=== PATIENT | male | born 1985 | race Two or more races ===

== ENCOUNTER → 2020-11-04 13:46 | Outpatient (BNVA) | payer MEDICAID, SELFPAY | PROVIDERS: PCP Internal Medicine; Visit Provider Surgery | DX: L02.01 Cutaneous abscess of face (principal) | CPT/HCPCS: 10061; 99202 ==

== ENCOUNTER 2022-05-10 10:34 | Outpatient (REF) | payer MEDICAID, SELFPAY ==
--- NOTE | ~2022-05-10 | XR_ITS ---
EXAMINATION: XR LUMBOSACRAL SPINE WITH OBLIQUES CLINICAL INFORMATION: Lumbar radiculopathy COMPARISON: Previous x-ray March 2018 TECHNIQUE: AP, both oblique, and lateral views of the lumbar spine. Lateral view of the lumbosacral junction. FINDINGS: Bone alignment is normal. No fracture or dislocation is seen. There is degenerative disc disease at L5-S1. There is lower lumbar spine facet arthritis. No pars defect is seen. XR/XR lumbar spine 4V min IMPRESSION: Degenerative changes.
== END 2022-05-10 10:35 | disposition home or self-care (01) ==
LOC: HO.XRAY 10:34
PROVIDERS: PCP Internal Medicine; Visit Provider Internal Medicine
DX: M54.16 Radiculopathy, lumbar region (principal)
CPT/HCPCS: 72110

== ENCOUNTER → 2022-08-09 12:53 | Outpatient (BNVA) | payer MEDICAID, SELFPAY | PROVIDERS: PCP Internal Medicine; Visit Provider Nurse Practitioner Family | DX: M54.16 Radiculopathy, lumbar region (principal); M51.36 Other intervertebral disc degeneration, lumbar region; M62.838 Other muscle spasm | CPT/HCPCS: 99202 ==

== ENCOUNTER 2022-09-25 06:21 | Outpatient (REF) | payer MEDICAID, SELFPAY | END 2022-09-25 06:22 | disposition home or self-care (01) | LOC: CF 06:21 | PROVIDERS: Visit Provider Anesthesiology | DX: Z13.89 Encounter for screening for other disorder (principal) ==

== ENCOUNTER 2022-10-16 06:11 | Outpatient (REF) | payer MEDICAID, SELFPAY ==
--- NOTE | ~2022-10-16 | FL_ITS ---
EXAMINATION: XR FLUOROSCOPY WITH IMAGES CLINICAL INFORMATION: M54.16 - Radiculopathy, lumbar region COMPARISON: Lumbar radiographs 05/10/2022 TECHNIQUE: Fluoroscopy Supervised By: Dr. Austin Sarmiento. Fluoroscopy Time: 0.6 minutes. Cumulative Dose: 25.2 mGy. DAP: 6.87 Gycm2. Images: 2. FINDINGS: There there is a spinal needle with tip overlying the outer left L5 neural foramen. There is contrast seen in the respective nerve sheath along with transforaminal epidural extension. No visible vascular communication. FL/FL guidance in treatment room IMPRESSION: Fluoroscopy for pain management procedure.
== END 2022-10-16 06:12 | disposition home or self-care (01) ==
LOC: CF 06:11
PROVIDERS: Visit Provider Anesthesiology
DX: M47.26 Other spondylosis with radiculopathy, lumbar region (principal); M51.36 Other intervertebral disc degeneration, lumbar region; M62.838 Other muscle spasm
CPT/HCPCS: 64483; 64484; J3301

== ENCOUNTER → 2022-11-13 09:24 | Outpatient (BNVA) | payer MEDICAID, SELFPAY | PROVIDERS: PCP Internal Medicine; Visit Provider Nurse Practitioner Family | DX: M47.26 Other spondylosis with radiculopathy, lumbar region (principal); M62.838 Other muscle spasm; M51.36 Other intervertebral disc degeneration, lumbar region | CPT/HCPCS: 99212 ==

== ENCOUNTER 2022-12-18 06:09 | Outpatient (REF) | payer MEDICAID, SELFPAY ==
--- NOTE | ~2022-12-18 | FL_ITS ---
EXAMINATION: XR FLUOROSCOPY WITH IMAGES CLINICAL INFORMATION: Spondylosis without myelopathy or radiculopathy, lumbar region. COMPARISON: 10/16/2022 TECHNIQUE: Fluoroscopy Supervised By: Dr. Austin Sarmiento. Fluoroscopy Time: 0.6 minutes. Cumulative Dose: 9.34 mGy. DAP: 2.54 Gycm2. Images: 7. FINDINGS: Needle and contrast seen with the appearance of transforaminal epidural steroid injections L4-S1. FL/FL guidance in treatment room IMPRESSION: Intraoperative fluoroscopy for pain management procedure.
== END 2022-12-18 06:10 | disposition home or self-care (01) ==
LOC: CF 06:09
PROVIDERS: Visit Provider Anesthesiology
DX: M47.816 Spondylosis without myelopathy or radiculopathy, lumbar region (principal); M54.16 Radiculopathy, lumbar region; M62.838 Other muscle spasm; M51.36 Other intervertebral disc degeneration, lumbar region
CPT/HCPCS: 64493; 64494

== ENCOUNTER → 2022-12-24 10:46 | Outpatient (BNVA) | payer MEDICAID, SELFPAY | PROVIDERS: PCP Internal Medicine; Visit Provider Anesthesiology ==

== ENCOUNTER 2023-12-06 11:29 | Emergency (ER) | payer OTHER, BC, SELFPAY ==
--- NOTE | ~2023-12-06 | XR_ITS ---
EXAMINATION: XR KNEE, RIGHT CLINICAL INFORMATION: Pain. Injury. COMPARISON: None available. TECHNIQUE: Four views of the right knee. FINDINGS: No fracture or joint effusion. Alignment is anatomic. Joint spaces are maintained. No abnormal soft tissue calcification. XR/XR knee RT 3V IMPRESSION: Normal right knee.
[2023-12-06 11:52] VITALS: BP 121/83; PULSE 71; RESP 18; TEMP 36.9; O2SAT 99; BMI 26.4
--- NOTE | 2023-12-06 11:55 | ED.GENADULT ---
HPI - General Adult General Chief complaint: Extremity Injury, Lower Stated complaint: R Knee Pain Work Injury 12/05/23 Time Seen by Provider: 12/06/23 14:42 Source: patient Mode of arrival: ambulatory Limitations: no limitations History of Present Illness HPI narrative: 38-year-old male otherwise healthy presents emergency department complaining of right knee pain. 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 Patient is able ambulate here had an extra ready which was unremarkable. Patient fevers chills previous knee issues Related Data Home Medications ?Medication ?Instructions ?Recorded ?Confirmed loratadine 10 mg capsule (Claritin 10 mg PO DAILY 11/04/20 Liqui-Gel) nabumetone 750 mg tablet 750 mg PO BID 11/04/20 tramadol 50 mg tablet 50 mg PO BID PRN 11/04/20 white petrolatum 41 % topical 1 appl topical DAILY PRN 11/04/20 ointment (Aquaphor Healing) naproxen 500 mg tablet 500 mg PO BID 12/24/22 Previous Rx's ?Medication ?Instructions ?Recorded methocarbamol 750 mg tablet 750 mg PO Q8H PRN muscle spasm 30 08/09/22 days #90 tabs diclofenac potassium 50 mg tablet 50 mg PO TID PRN pain (scale score 11/13/22 7-10) #90 tabs lidocaine 5 % topical patch 1 patch topical DAILY pain 30 days 11/13/22 #30 ea acetaminophen 325 mg tablet 325 mg PO QID PRN pain #90 tabs 12/06/23 (Tylenol) ibuprofen 400 mg tablet 400 mg PO Q6H PRN Pain #60 tabs 12/06/23 Allergies Allergy/AdvReac Type Severity Reaction Status Date / Time No Known Allergies Allergy Verified 12/06/23 11:55 Review of Systems Review of Systems: Review of systems: General: Patient denies any fever chills recent illness or falls Musculoskeletal: Denies back pain or body aches or other injuries HEENT: denies headache, runny nose, ear pain Respiratory: denies shortness of breath, cough Cardiovascular: no chest pain or palpitations : denies dysuria, frequency Abdomen: no nausea vomiting denies abdominal pain Extremities: no swelling, right knee pain Skin: no diaphoresis Yes all other systems are reviewed and are negative PMFSH Past Medical History Medical History Abscess of forehead Chronic back pain No active medical problems Social History Social History Alcohol intake: never Patient Tobacco Use Status: Never used Tobacco Physical Exam ED Vital Signs: Vital Signs - 24 hr 12/06/23 11:52 Temperature 98.4 F Pulse Rate 71 Respiratory Rate 18 Blood Pressure 121/83 Pulse Oximetry 99 Oxygen Delivery Method Room Air BMI result Body Mass Index 26.4 General: Well-appearing well-nourished in no signs of distress HEENT: Normocephalic atraumatic Neck: No signs of JVD, no masses no tenderness or lymphadenopathy Cardiovascular: Regular rate and rhythm Respiratory: Clear to auscultation bilaterally Abdomen: Soft nontender no masses Extremities: Normal pedal pulses no signs of edema no signs of trauma to the knee I did and the joints ligaments ligaments no swelling of the knee Skin: Dry warm no rashes Back: No tenderness full ROM Course Course Course Narrative: RME performed by Mima Scruggs PA-C. Patient is a 38 year old assigned male at presenting to the emergency department with right knee pain after hitting it on something at work. Detailed physical exam and review of systems are deferred to the supervisor [employer]. Imaging ordered. Patient placed back in the waiting room pending room availability and results. Medical Decision Making Medical Decision Making MDM Narrative: X-rays unremarkable patient has no signs of ligamentous injury patient was given knee immobilizer and crutches explain to him that he can use them if they help do not patient needs Ms. Time at work for a knee contusion I will discharge home. Differential Diagnosis Differential Diagnoses: The differential diagnosis associated with the presentation includes Knee contusion knee fracture Independent Interpretation I performed an independent interpretation of an: Plain X-Ray Radiology Impression Discussion of test interpretation with radiology: I have reviewed the radiologist's reading. External Record Review External record reviewed: Inpatient record and Office record Chronic Conditions Chronic back pain Discharge Plan Discharge Clinical Impression: Contusion of knee, right Patient Disposition: Home, Self-Care Instructions: Contusion in Adults (ED) Additional Instructions: You were seen today after hitting her knee. You an x-ray which was normal your exam was unremarkable. Please call follow-up with your doctor. Prescriptions: New acetaminophen [Tylenol] 325 mg tablet 325 mg PO QID PRN (Reason: pain) Qty: 90 0RF ibuprofen 400 mg tablet 400 mg PO Q6H PRN (Reason: Pain) Qty: 60 0RF No Action loratadine [Claritin Liqui-Gel] 10 mg capsule 10 mg PO DAILY Aquaphor Healing 41 % ointment 1 appl topical DAILY PRN nabumetone 750 mg tablet 750 mg PO BID tramadol 50 mg tablet 50 mg PO BID PRN methocarbamol 750 mg tablet 750 mg PO Q8H PRN (Reason: muscle spasm) 30 Days Qty: 90 0RF lidocaine 5 % adhesive patch,medicated 1 patch topical DAILY 30 Days Qty: 30 0RF diclofenac potassium 50 mg tablet 50 mg PO TID PRN (Reason: pain (scale score 7-10)) Qty: 90 0RF Rx Instructions: Take it with food and full glass of water. Avoid other NSAIDs. naproxen 500 mg tablet 500 mg PO BID Referrals: Derick Michel MD [Physician] - (Please call follow up with her knee) Stand Alone Forms: Work/School Release Print Language: Bur[place]ian
--- NOTE | 2023-12-06 15:08 | PC.NURSE ---
PT WAS SEEN AND DISCAHRGED BY PROVIDER, IMMOBILIZER AND CRUTCHES PLACED AND FITTED BY PCT
== END 2023-12-06 15:10 | disposition home or self-care (01) ==
PROVIDERS: Emergency Provider Student in an Organized Health Care Education/Training Program; PCP Internal Medicine
DX: S80.01XA Contusion of right knee, initial encounter (principal); W22.8XXA Striking against or struck by other objects, initial encounter; Y93.9 Activity, unspecified; Y92.89 Other specified places as the place of occurrence of the external cause; Y99.0 Civilian activity done for income or pay
CPT/HCPCS: 73562; 99281; 99283